=== PATIENT | female | born 1990 | race Caucasian/White ===

== ENCOUNTER 2020-07-14 07:30 | Inpatient (IN) ==
[2020-07-14] MEDS ORDERED: DINOPROSTONE 10 MG INSERT PV ONE (08:35)
[2020-07-14] MEDS ORDERED: OXYTOCIN 30 UNITS/500 ML BAG IV PRN ×2 (08:35→22:00)
[2020-07-14 09:01] LABS: Hemoglobin 10.5 g/dL (12.0-16.0); Mean Corpuscular Hemoglobin 29.1 pg (25-34); Mean Corpuscular Volume 85.9 fL (80-100); Mean Platelet Volume 9.5 fL (7.4-10.4); Platelet Count 582 K/uL (130-400); RDW Coefficient of Variation 13.2 % (11.5-14.5); RDW Standard Deviation 41.5 fL (36.4-46.3); Red Blood Count 3.61 M/uL (4.2-5.4)
--- NOTE | 2020-07-14 09:02 | History & Physical Report ---
Date of Service July 14, 2020 Assessment & Plan (1) Intrahepatic cholestasis of in third trimester: Patient is a 29-year-old G1, P0 at 38 weeks and 4 days of gestation, scheduled for induction of labor at term due to elevated bile acids, ICP. Vital signs stable afebrile heart rate reassuring GBS negative, coronavirus negative. Cervix unfavorable. Discussed with the patient about cervical ripening and induction process. Plan for Cervidil for cervical ripening. All questions were answered. Admission and Anticipated Discharge Date Admission Date: July 14, 2020 History of Present Illness Chief Complaint: Induction of labor Primary Care Provider: NO PCP Patient is a 29-year-old G1, P0 at 38 weeks and 4 days of gestation who was scheduled for induction of labor at term due to elevated bile acids, ICP. She has no complaints. She denies contractions, leakage of fluid, vaginal bleeding. She reports good movements. She denies fever chills, nausea vomiting, epigastric or right upper quadrant pain, headaches, change in vision. Her was uncomplicated except above. GBS negative. Coronavirus negative. Home Medications Home Medications Medication Instructions Recorded Confirmed Type prenat.vits,molly,[id number]-ksmdu 1 tab PO DAILY 07/14/20 07/14/20 History [ Vitamin] Patient History Medical History Mastitis during 06/30/2020 Spontaneous 05/2019 Surgical History History of colposcopy with cervical biopsy 01/30 ASCUS +HR HPV colpo 02/2013-negative Pap 01/31, 02/01, 12/05 [place] teeth extracted Family History Grandmother (Paternal) Stroke Grandfather (Maternal) Myocardial infarction Social History Smoking Status: Never smoker Hx Alcohol Use: No Hx Substance Use: No Preferred Language: Romanian Communication Ability: Effective Beliefs That Will Affect Care: None marital status: Current Living Situation: Spouse Feels Safe at Home: Yes HEALTH DIRECTOR History No h/o STD's, no HSV Review of Systems All systems reviewed & are unremarkable except as noted in HPI & below Physical Exam Constitutional: WD/WN, vitals as above well developed and well nourished Comfortable, not in acute distress. Gastrointestinal (Abdomen): Abdomen soft nontender, gravid, no epigastric or right upper quadrant tenderness. Genitourinary: normal external appearance OB Exam Abdomen: + vertex (Confirmed with bedside ultrasound.) Manual OB Exam: + cervical dilation (0) fingertip, + cervical effacement 50% and + station high OB Exam Monitor Tracing: + external uterine monitor used and + category I Results & Data ([facility]) Vital Signs (Past 12 Hours) Vital Signs Temp Pulse Resp BP 07/14/20 07:45 36.7 C 18 07/14/20 07:43 102 H 118/88
[2020-07-14 09:03] LABS: Mean Corpuscular Hgb Conc 33.9 g/dL (32-36)
[2020-07-14] MEDS ORDERED: CALCIUM CARBONATE 500 MG CHEWABLE TAB PO PRN (09:03)
[2020-07-14] MEDS ORDERED: ONDANSETRON INJ 2 MG/ML 2 ML VIAL IV PRN (09:03)
[2020-07-14 09:18] LABS: Albumin Level 2.7 gm/dl (3.4-5.0); BUN Creatinine Ratio 12.9 (10-20); Creatinine Clr Calc Pharmacy 134.2 ml/min; Est GFR (Non-African American) 120.8; Potassium 3.9 mmol/L (3.5-5.1)
[2020-07-14 09:21] LABS: Albumin Globulin Ratio 0.6 (0.9-2); Bilirubin,Total 0.3 mg/dl (0.2-1); Globulin 4.9 gm/dl (2.5-4.0); Total Protein 7.6 gm/dl (6.4-8.2)
--- NOTE | 2020-07-14 09:29 | Anesthesiology Consultation ---
Date of Service July 14, 2020 Assessment & Plan (1) Encounter for pre-operative examination: Chart Review Chart Review: Acceptable Risk for Surgery and Patient NOT seen in Pre Admission Testing Consults Requested none ASA ASA2 Proposed Anesthesia Anesthesia Type: Labor Epidural Risk / Benefits Reviewed With: PT / POA / Parent / Guardian, Accepts Plan and Informed Consent Obtained History Height/Weight Height: 5 ft 5 in Weight: 79.379 kg Allergies Allergy/AdvReac Type Severity Reaction Status Date / Time No Known Allergies Allergy Unverified 07/14/20 09:10 Medications Home Medications Medication Instructions Recorded Confirmed Last Taken prenat.vits,molly,[id number]-[id number] 1 tab PO DAILY 07/14/20 07/14/20 07/14/20 [ Vitamin] NPO Date Last Intake of Fluids: 07/14/20 Time Last Intake of Fluids: 08:00 Date Last Intake of Solids: 07/13/20 Time Last Intake of Solids: 21:00 Past Medical History Medical History Mastitis during 06/30/2020 Spontaneous 05/2019 Exercise / Class Metabolic Activity II 4-5 Yardwork/Stairs/Walk up hill Past Family History Family History Grandmother (Paternal) Stroke Grandfather (Maternal) Myocardial infarction Past Surgical History Surgical History History of colposcopy with cervical biopsy 01/30 ASCUS +HR HPV colpo 02/2013-negative Pap 01/31, 02/01, 12/05 [place] teeth extracted Past Anesthesia History No Hx of Anesthesia Complications and No Family Hx of Anesthesia Complications History of PONV No Hx of PONV and No Hx of Motion Sickness Social History Smoking Status: Never smoker Hx Alcohol Use: No Hx Substance Use: No Physical Exam Vital Signs Last Vital Signs Temp 36.7 C 07/14/20 07:45 Pulse 102 H 07/14/20 07:43 Resp 18 07/14/20 07:45 BP 118/88 07/14/20 07:43 ENMT Mouth: no dentition abnormality Thyromental Distance: > or= 3.5 Finger Breadths Mallampati Class: II Neck normal visual inspection Respiratory normal respiratory effort Auscultation: lungs clear to auscultation bilaterally Cardiovascular Rate/Rhythm: regular rate and regular rhythm Psychiatric Orientation: alert Testing Laboratory Results 07/14/20 08:52 07/14/20 08:52
[2020-07-14] MEDS: LACTATED RINGER'S 1,000 ML IV PRN ×3 (16:20→20:03)
--- NOTE | 2020-07-14 16:20 | Obstetrical Progress Note ---
Date of Service July 14, 2020 Assessment & Plan Admission and Anticipated Discharge Date Admission Date: July 14, 2020 Subjective Patient is reevaluated She started to feel ctxs q 2-3 min, pain is 6/10 Desires pain meds VE; 1cm/ 50%/ -, 3, posterior, Cervidil is in place Stadol for pain Continue to monitor Results & Data ([facility]) Vital Signs (Past 12 Hours) Vital Signs Temp Pulse Resp BP 07/14/20 15:02 90 117/75 07/14/20 15:00 36.6 C 20 07/14/20 14:16 18 07/14/20 13:30 92 H 126/76 07/14/20 13:28 36.7 C 18 07/14/20 12:30 18 07/14/20 11:49 18 07/14/20 11:19 18 07/14/20 11:00 18 07/14/20 10:30 36.5 C 88 18 111/68 07/14/20 07:45 36.7 C 07/14/20 07:43 102 H 118/88
[2020-07-14] MEDS: BUTORPHANOL TARTRATE 1 MG/ML VIAL IV PRN ×2 (16:23→18:57)
[2020-07-14] MEDS ORDERED: NALOXONE HCL 0.4 MG/1 ML VIAL/CARP IV PRN (19:50)
[2020-07-14] MEDS ORDERED: ePHEDrine sulfate 50 MG/ML AMP ONE (19:50)
[2020-07-14] MEDS ORDERED: NALOXONE HCL 1 MG in SODIUM CHLORIDE 0.9% 1000ML 1,000 ML IV PRN (19:50)
[2020-07-14] MEDS ORDERED: fentaNYL 2MCG/ML ROPIV 1.25MG/ML 100 ML BAG EPI PRN (19:50)
[2020-07-14] MEDS ORDERED: BUPIVACAINE 0.25% 30 ML VIAL ONE (19:50)
[2020-07-14] MEDS ORDERED: ePHEDrine sulfate 50 MG/ML AMP IV PRN (19:50)
[2020-07-14] MEDS ORDERED: DiphenhydrAMINE HCL 50 MG/ML VIAL IV PRN (19:50)
--- NOTE | 2020-07-14 19:50 | Anesthesiology Consultation ---
Date of Service July 14, 2020 Assessment & Plan (1) Encounter for pre-operative examination: Chart Review Chart Review: Acceptable Risk for Surgery and Patient NOT seen in Pre Admission Testing Consults Requested none ASA ASA2 Proposed Anesthesia Anesthesia Type: Labor Epidural Risk / Benefits Reviewed With: PT / POA / Parent / Guardian, Accepts Plan and Informed Consent Obtained History Height/Weight Height: 5 ft 5 in Weight: 79.379 kg Allergies Allergy/AdvReac Type Severity Reaction Status Date / Time No Known Allergies Allergy Unverified 07/14/20 09:10 Medications Home Medications Medication Instructions Recorded Confirmed Last Taken prenat.vits,molly,iue-sopv-fzqeh 1 tab PO DAILY 07/14/20 07/14/20 07/14/20 [ Vitamin] Active Medications Generic Name Dose Route Start Last Admin Trade Name Freq PRN Reason Stop Dose Admin Butorphanol Tartrate 1 mg 07/14/20 09:03 07/14/20 18:57 Butorphanol Tartrate 1 Mg/Ml Vial IV 08/13/20 09:02 1 mg Q3HWA PRN Administration Pain Lactated Ringer's 1,000 mls @ 150 mls/hr 07/14/20 08:35 07/14/20 19:30 Lr IV 07/16/20 08:34 999 mls/hr .[id number] PRN Infusion L&D Protocol Protocol NPO Date Last Intake of Fluids: 07/14/20 Time Last Intake of Fluids: 08:00 Date Last Intake of Solids: 07/13/20 Time Last Intake of Solids: 21:00 Past Medical History Medical History Mastitis during 06/30/2020 Spontaneous 05/2019 Exercise / Class Metabolic Activity II 4-5 Yardwork/Stairs/Walk up hill Past Family History Family History Grandmother (Paternal) Stroke Grandfather (Maternal) Myocardial infarction Past Surgical History Surgical History History of colposcopy with cervical biopsy 01/30 ASCUS +HR HPV colpo 02/2013-negative Pap 01/31, 02/01, 12/05 [place] teeth extracted Past Anesthesia History No Hx of Anesthesia Complications and No Family Hx of Anesthesia Complications History of PONV No Hx of PONV and No Hx of Motion Sickness Social History Smoking Status: Never smoker Hx Alcohol Use: No Hx Substance Use: No Physical Exam Vital Signs Last Vital Signs Temp 37.0 C 07/14/20 19:16 Pulse 100 H 07/14/20 19:02 Resp 18 07/14/20 19:16 BP 119/65 07/14/20 19:02 ENMT Mouth: no dentition abnormality Thyromental Distance: > or= 3.5 Finger Breadths Mallampati Class: II Neck normal visual inspection Respiratory normal respiratory effort Auscultation: lungs clear to auscultation bilaterally Cardiovascular Rate/Rhythm: regular rate and regular rhythm Psychiatric Orientation: alert Testing Laboratory Results 07/14/20 08:52 07/14/20 08:52
[2020-07-14] MEDS ORDERED: fentaNYL citrate 100 MCG/2 ML VIAL ONE (19:51)
[2020-07-14] MEDS ORDERED: fentaNYL 2MCG/ML ROPIV 1.25MG/ML 100 ML BAG EPI ONE (19:51)
--- NOTE | 2020-07-14 20:26 | Obstetrical Progress Note ---
Date of Service July 14, 2020 Assessment & Plan Admission and Anticipated Discharge Date Admission Date: July 14, 2020 Subjective Patient is comfortable now Received 2 doses of Stadol and then epidural No pain, smiling FHR reassuring Continue to monitor VE in an hour to remove Cervidil Results & Data ([facility]) Vital Signs (Past 12 Hours) Vital Signs Temp Pulse Resp BP Pulse Ox 07/14/20 20:21 99 H 99 07/14/20 20:18 100 H 123/71 07/14/20 20:16 99 H 121/61 99 07/14/20 20:14 99 H 123/59 L 07/14/20 20:12 96 H 130/70 07/14/20 20:11 109 H 99 07/14/20 20:10 101 H 107/58 L 07/14/20 20:09 93 H 114/61 07/14/20 20:06 100 H 108/54 L 100 07/14/20 20:01 99 H 100 07/14/20 19:56 98 H 100 07/14/20 19:16 37.0 C 18 07/14/20 19:02 100 H 119/65 07/14/20 19:00 37.0 C 20 07/14/20 17:28 90 119/59 L 07/14/20 17:27 36.9 C 20 07/14/20 15:02 90 117/75 07/14/20 15:00 36.6 C 20 07/14/20 14:16 18 07/14/20 13:30 92 H 126/76 07/14/20 13:28 36.7 C 18 07/14/20 12:30 18 07/14/20 11:49 18 07/14/20 11:19 18 07/14/20 11:00 18 07/14/20 10:30 36.5 C 88 18 111/68
--- NOTE | 2020-07-14 22:05 | Obstetrical Progress Note ---
Date of Service July 14, 2020 Assessment & Plan Admission and Anticipated Discharge Date Admission Date: July 14, 2020 Subjective Patient is reevaluated She is comfortable VE; 3-4 cm/ 70%/ -2, leaking clear fluid? Nitrazine negative, Cervidil is taken out FHR categ I [place] ctxs q 2-4 min Continue to monitor Augment with Pitocin as needed Results & Data ([facility]) Vital Signs (Past 12 Hours) Vital Signs Temp Pulse Resp BP Pulse Ox 07/14/20 21:56 98 H 97 07/14/20 21:51 96 H 97 07/14/20 21:49 96 H 111/70 07/14/20 21:46 98 H 97 07/14/20 21:41 102 H 98 07/14/20 21:36 93 H 99 07/14/20 21:33 87 108/64 07/14/20 21:31 108 H 18 98 07/14/20 21:26 105 H 99 07/14/20 21:21 93 H 97 07/14/20 21:20 18 07/14/20 21:18 90 97/51 L 07/14/20 21:16 88 96 07/14/20 21:11 90 96 07/14/20 21:06 96 H 97 07/14/20 21:03 88 99/52 L 07/14/20 21:01 90 99 07/14/20 20:56 96 H 97 20 20:51 98 H 98 20 20:48 115 H 109/61 20 20:46 102 H 99 20 20:41 104 H 98 20 20:36 101 H 99 20 20:33 103 H 115/67 20 20:31 96 H 98 20 20:29 18 20 20:26 98 H 99 25/20 20:25 18 20 20:21 99 H 99 20 20:18 100 H 123/71 2520 20:16 99 H 121/61 99 25/20 20:15 18 20 20:14 99 H 123/59 L 20 20:12 96 H 130/70 20 20:11 109 H 99 08/25/20 20:10 101 H 18 107/58 L 07/14/20 20:09 93 H 114/61 07/14/20 20:06 100 H 108/54 L 100 07/14/20 20:05 18 07/14/20 20:01 99 H 100 07/14/20 19:56 98 H 100 07/14/20 19:16 37.0 C 18 07/14/20 19:02 100 H 119/65 07/14/20 19:00 37.0 C 20 07/14/20 17:28 90 119/59 L 07/14/20 17:27 36.9 C 20 07/14/20 15:02 90 117/75 07/14/20 15:00 36.6 C 20 07/14/20 14:16 18 07/14/20 13:30 92 H 126/76 07/14/20 13:28 36.7 C 18 07/14/20 12:30 18 07/14/20 11:49 18 07/14/20 11:19 18 07/14/20 11:00 18 07/14/20 10:30 36.5 C 88 18 111/68
[2020-07-15] MEDS: LACTATED RINGER'S 1,000 ML IV PRN ×2 (04:24→06:30)
--- NOTE | 2020-07-15 06:36 | Obstetrical Progress Note ---
Date of Service July 15, 2020 Assessment & Plan Admission and Anticipated Discharge Date Admission Date: July 14, 2020 Subjective Patient has been pushing for about 2.5 hours, with good efforts for the last 2 hours Large caput, visible with pushes FHR categ I Will continue to monitor closely Anticipate Results & Data ([facility]) Vital Signs (Past 12 Hours) Vital Signs Temp Pulse Resp BP Pulse Ox 07/15/20 06:32 125 H 98 07/15/20 06:27 162 H 98 07/15/20 06:23 37.0 C 18 07/15/20 06:22 166 H 97 07/15/20 06:17 121 H 98 07/15/20 06:12 155 H 98 07/15/20 06:07 106 H 97 07/15/20 06:02 111 H 97 07/15/20 05:57 122 H 98 07/15/20 05:52 117 H 98 07/15/20 05:47 114 H 98 07/15/20 05:42 104 H 96 07/15/20 05:41 108 H 90 07/15/20 05:37 98 H 96 07/15/20 05:33 101 H 107/57 L 07/15/20 05:32 104 H 98 07/15/20 05:27 96 H 96 07/15/20 05:22 102 H 93 07/15/20 05:21 103 H 94 07/15/20 05:18 97 H 117/63 07/15/20 05:16 91 H 95 07/15/20 05:11 100 H 97 07/15/20 05:10 110 H 88 L 07/15/20 05:06 100 H 96 07/15/20 05:04 93 H 121/69 07/15/20 05:03 115 H 93 07/15/20 05:01 100 H 98 07/15/20 04:56 119 H 95 07/15/20 04:51 118 H 98 07/15/20 04:46 108 H 95 07/15/20 04:41 108 H 99 07/15/20 04:38 37.4 C 18 07/15/20 04:37 109 H 90 07/15/20 04:36 96 H 110/66 96 07/15/20 04:31 107 H 89 L 07/15/20 04:26 103 H 99 07/15/20 04:21 103 H 99 08/26/20 04:18 91 H 127/73 07/15/20 04:16 103 H 98 07/15/20 04:11 108 H 99 07/15/20 04:06 97 H 98 07/15/20 04:04 92 H 129/73 07/15/20 04:01 114 H 99 07/15/20 03:56 102 H 100 07/15/20 03:51 93 H 100 07/15/20 03:48 97 H 124/76 07/15/20 03:46 101 H 100 07/15/20 03:41 96 H 18 99 07/15/20 03:36 91 H 99 07/15/20 03:34 94 H 123/72 07/15/20 03:31 97 H 99 07/15/20 03:26 99 H 100 07/15/20 03:21 102 H 100 07/15/20 03:18 103 H 119/74 07/15/20 03:16 99 H 98 07/15/20 03:11 87 98 07/15/20 03:06 90 100 07/15/20 03:04 90 121/72 07/15/20 03:01 89 99 07/15/20 02:56 94 H 99 07/15/20 02:51 86 100 07/15/20 02:49 86 117/66 07/15/20 02:46 89 98 07/15/20 02:41 97 H 97 07/15/20 02:36 86 98 07/15/20 02:33 86 111/71 07/15/20 02:31 109 H 99 07/15/20 02:26 93 H 100 07/15/20 02:21 87 98 07/15/20 02:18 91 H 109/71 07/15/20 02:16 90 97 07/15/20 02:11 96 H 99 07/15/20 02:06 99 H 98 07/15/20 02:03 95 H 112/74 07/15/20 02:01 92 H 98 07/15/20 01:56 88 98 07/15/20 01:52 107 H 91 07/15/20 01:51 113 H 98 07/15/20 01:48 97 H 111/69 07/15/20 01:46 85 98 07/15/20 01:41 107 H 99 07/15/20 01:36 97 H 98 07/15/20 01:33 95 H 112/70 07/15/20 01:31 98 H 98 07/15/20 01:26 106 H 98 07/15/20 01:21 92 H 97 07/15/20 01:19 93 H 112/70 07/15/20 01:16 102 H 97 07/15/20 01:11 87 96 07/15/20 01:06 89 96 07/15/20 01:03 89 111/67 07/15/20 01:01 93 H 18 96 07/15/20 00:56 94 H 96 07/15/20 00:51 89 97 07/15/20 00:48 91 H 122/69 07/15/20 00:46 95 H 97 07/15/20 00:41 90 97 07/15/20 00:37 37.5 C 18 07/15/20 00:36 90 98 07/15/20 00:33 86 120/66 07/15/20 00:31 90 97 07/15/20 00:26 93 H 98 07/15/20 00:21 98 H 99 07/15/20 00:18 85 94/50 L 07/15/20 00:16 88 96 07/15/20 00:11 86 96 07/15/20 00:06 93 H 97 07/15/20 00:04 85 101/61 07/15/20 00:01 88 97 07/14/20 23:58 18 07/14/20 23:56 87 97 07/14/20 23:51 89 98 07/14/20 23:50 85 96/55 L 07/14/20 23:46 87 98 07/14/20 23:41 96 H 98 07/14/20 23:39 18 07/14/20 23:36 106 H 98 07/14/20 23:34 98 H 110/65 07/14/20 23:31 95 H 96 07/14/20 23:26 97 H 96 07/14/20 23:21 95 H 97 07/14/20 23:20 94 H 108/68 07/14/20 23:16 98 H 97 07/14/20 23:11 96 H 98 07/14/20 23:06 110 H 96 07/14/20 23:04 100 H 119/69 08/25/20 23:01 101 H 97 0825/20 22:56 94 H 97 0825/20 22:51 95 H 97 08/20 22:49 99 H 109/65 0825/20 22:46 93 H 97 08/20 22:41 98 H 96 08/20 22:36 98 H 96 08/20 22:34 96 H 111/68 08/20 22:31 94 H 97 07/14/20 22:26 92 H 98 08/20 22:21 96 H 98 07/14/20 22:18 92 H 106/65 25/20 22:16 95 H 98 08/20 22:11 100 H 98 07/14/20 22:06 105 H 98 20 22:03 97 H 110/71 07/14/20 22:01 37.2 C 104 H 18 98 20 21:56 98 H 97 20 21:51 96 H 97 20 21:49 96 H 111/70 25/20 21:46 98 H 97 20 21:41 102 H 98 0825/20 21:36 93 H 99 0825/20 21:33 87 108/64 08/20 21:31 108 H 18 98 20 21:26 105 H 99 07/14/20 21:21 93 H 97 07/14/20 21:20 18 25/20 21:18 90 97/51 L 20 21:16 88 96 0825/20 21:11 90 96 25/20 21:06 96 H 97 25/20 21:03 88 99/52 L 07/14/20 21:01 90 99 0825/20 20:56 96 H 97 0825/20 20:51 98 H 98 0825/20 20:48 115 H 109/61 0825/20 20:46 102 H 99 0825/20 20:41 104 H 98 0825/20 20:36 101 H 99 0825/20 20:33 103 H 115/67 0825/20 20:31 96 H 98 0825/20 20:29 18 25/20 20:26 98 H 99 0825/20 20:25 18 07/14/20 20:21 99 H 99 07/14/20 20:18 100 H 123/71 07/14/20 20:16 99 H 121/61 99 07/14/20 20:15 18 07/14/20 20:14 99 H 123/59 L 07/14/20 20:12 96 H 130/70 07/14/20 20:11 109 H 99 07/14/20 20:10 101 H 18 107/58 L 07/14/20 20:09 93 H 114/61 07/14/20 20:06 100 H 108/54 L 100 07/14/20 20:05 18 07/14/20 20:01 99 H 100 07/14/20 19:56 98 H 100 07/14/20 19:16 37.0 C 18 07/14/20 19:02 100 H 119/65 07/14/20 19:00 37.0 C 20
[2020-07-15] MEDS ORDERED: ACETAMINOPHEN 325 MG TAB PO PRN (07:46)
[2020-07-15] MEDS ORDERED: SUPERCREAM 0.870% 15 GM JAR EXT PRN (07:46)
[2020-07-15] MEDS ORDERED: MEASLES, MUMPS & RUBELLA VIRUS VIAL SQ ONE (07:46)
[2020-07-15] MEDS ORDERED: CEFAZOLIN 2000MG 2,000 MG/15 ML SYR IV STA (07:46)
[2020-07-15] MEDS ORDERED: BENZOCAINE 20% AER SPR 82.5 GM CAN EXT PRN (07:46)
[2020-07-15] MEDS ORDERED: OXYCODONE/ACETAMINOPHEN 5mg/325mg TAB PO PRN (07:46)
[2020-07-15] MEDS ORDERED: OXYTOCIN 30 UNITS/500 ML BAG IV PRN (07:46)
[2020-07-15] MEDS ORDERED: DIPHTHERIA/TETANUS/PERTUSSIS 0.5 ML SYR/VIAL IM ONE (07:46)
[2020-07-15] MEDS ORDERED: HYDROCORTISONE ACETATE 25 MG SUPP PR PRN (07:46)
[2020-07-15] MEDS ORDERED: FERROUS SULFATE 325 MG TAB PO SCH (08:00)
--- NOTE | 2020-07-15 08:09 | Anesthesia Procedure Note ---
Date of Service July 15, 2020 Anesthesia Post Epidural Note Vital Signs Vital Signs: Temp Pulse Resp BP Pulse Ox 37.0 C 106 H 18 125/64 82 L 07/15/20 06:23 07/15/20 08:03 07/15/20 06:23 07/15/20 08:03 07/15/20 07:18 Notes Mental Status: alert / awake / arousable Nausea / Vomiting: adequately controlled Pain: adequately controlled Airway Patency, RR, SpO2: stable & adequate BP & HR: stable & adequate Hydration State: stable & adequate Neuraxial Anesthesia: was administered and sensory block is resolving Anesthetic Complications: no major complications apparent Epidural: Removed without complications and With tip intact
[2020-07-15] MEDS ORDERED: FLUCONAZOLE 50 MG TAB PO ONE (08:15)
[2020-07-15] MEDS: IBUPROFEN 600 MG TAB PO PRN ×2 (08:54→19:34)
--- NOTE | 2020-07-15 09:21 | Delivery Summary ---
DATE OF OPERATION: 07/15/2020 DATE OF DELIVERY: 07/15/2020. TIME: 07:17 a.m. DETAILS OF DELIVERY: The patient was found to be fully dilated and desired to push. She pushed for 3-1/2 hours and delivered the head without difficulty and then shoulders were delivered with minimal traction. There was a nuchal cord around the neck x1 which was reduced. Baby was handed to the mother where mouth and nose were suctioned. Cord was clamped x2 and cut. It was 3-vessel cord. Then cord blood was obtained. Vagina and perineum were checked for lacerations. There was a partial third-degree perineal laceration, which was confirmed with rectal exam. There was partial sphincter tone. The external sphincter muscles fibers and the perineal body muscles around it were held with Allis clamps brought to the midline. Those were reapproximated with 2-0 Vicryl with [id number] stitches x2 and the rectal exam was repeated and excellent sphincter tone and integrity was noted. No sutures were felt. Gloves were changed and more sutures were placed around the repair including perineal body muscles and bulbocavernosus muscles. Then vaginal mucosa was repaired with another sterile 2-0 Vicryl in a running fashion, skin in a subcuticular fashion. The rest of the vagina and labia were intact. Placenta was found to be in the vagina, delivered spontaneous as intact and complete. Uterus was explored, found to be empty. Lower segment was cleared of all clots and debris. EBL was 200 mL. Mom and baby tolerated the procedure well. Sponge, lap, needle count was correct x2. Baby was a viable male infant, Apgars 8/9, weight is 3586 gr. No complications happened and I was present during whole procedure. I attest to the content of the Intraoperative Record and any orders documented therein. Any exceptions are noted below. MTDD
[2020-07-15] MEDS: DOCUSATE SODIUM 100 MG CAP PO SCH ×2 (10:47→21:44)
[2020-07-15] MEDS: PRENATAL VITAMIN 1 TAB PO SCH (10:47)
[2020-07-15] MEDS ORDERED: bisacodyL 5 MG TABEC PO SCH (20:00)
[2020-07-16] MEDS: IBUPROFEN 600 MG TAB PO PRN ×5 (03:48→19:55)
[2020-07-16 06:59] LABS: Hematocrit (blood only) 27.7 % (37-47); Hemoglobin 9.1 g/dL (12.0-16.0); Mean Corpuscular Hemoglobin 28.6 pg (25-34); Mean Corpuscular Hgb Conc 32.9 g/dL (32-36); Mean Corpuscular Volume 87.1 fL (80-100); Mean Platelet Volume 9.5 fL (7.4-10.4); Platelet Count 500 K/uL (130-400); RDW Coefficient of Variation 13.8 % (11.5-14.5); RDW Standard Deviation 43.8 fL (36.4-46.3); Red Blood Count 3.18 M/uL (4.2-5.4); White Blood Count 23.49 K/uL (4.8-10.8)
--- NOTE | 2020-07-16 07:38 | Obstetrical Progress Note ---
Date of Service July 16, 2020 Assessment & Plan Admission and Anticipated Discharge Date Admission Date: July 14, 2020 Subjective Patient is seen and examined. She feels well, no complaints. Ambulating without dizziness Voiding without difficulty Tolerating regular diet with out N&V Bleeding is minimal No fever/ chills/ CP/ SOB/ N&V/ Leg pain Breast feeding without problems Vital Signs Temp Pulse Pulse Resp BP BP Pulse Ox 07/16/20 00:00 36.4 C L 76 18 92/66 L 07/15/20 19:25 36.7 C 94 H 18 115/74 07/15/20 16:40 36.5 C 89 19 114/74 98 07/15/20 10:50 36.7 C 97 H 22 97/67 L 97 07/15/20 09:48 95 H 18 115/66 07/15/20 09:33 96 H 116/63 07/15/20 09:24 99 H 112/60 07/15/20 09:18 36.8 C 99 H 20 112/60 07/15/20 09:03 95 H 121/67 07/15/20 08:48 91 H 18 116/70 07/15/20 08:34 93 H 115/67 07/15/20 08:33 93 H 18 115/67 07/15/20 08:19 100 H 124/67 07/15/20 08:18 100 H 18 124/67 07/15/20 08:03 106 H 18 125/64 07/15/20 07:48 37.0 C 103 H 20 123/66 Lab Results 07/14/20 07/14/20 07/16/20 Range/Units 08:52 08:52 06:27 WBC 15.70 H 23.49 H (4.8-10.8) K/uL RBC 3.61 L 3.18 L (4.2-5.4) M/uL Hgb 10.5 L 9.1 L (12.0-16.0) g/dL Hct 31.0 L 27.7 L (37-47) % MCV 85.9 87.1 (80-100) fL MCH 29.1 28.6 (25-34) pg MCHC 33.9 32.9 (32-36) g/dL RDW Std Deviation 41.5 43.8 (36.4-46.3) fL RDW Coeff of Roly 13.2 13.8 (11.5-14.5) % Plt Count 582 H 500 H (130-400) K/uL MPV 9.5 9.5 (7.4-10.4) fL Sodium 135 L (136-145) mmol/L Potassium 3.9 (3.5-5.1) mmol/L Chloride 108 H (98-107) mmol/L Carbon Dioxide 19 L (21-32) mmol/L Anion Gap 8.0 (3-11) BUN 8 (7-18) mg/dl Creatinine 0.65 (0.6-1.2) mg/dl Est Cr Clr Drug Dosing 134.2 ml/min Est GFR ( Amer) 140.0 Est GFR (Non-Af Amer) 120.8 BUN/Creatinine Ratio 12.9 (10-20) Glucose 76 (70-99) mg/dl Calcium 9.0 (8.5-10.1) mg/dl Total Bilirubin 0.3 (0.2-1) mg/dl AST 40 H (15-37) U/L ALT 45 (12-78) U/L Alkaline Phosphatase 268 H (45-117) U/L Total Protein 7.6 (6.4-8.2) gm/dl Albumin 2.7 L (3.4-5.0) gm/dl Globulin 4.9 H (2.5-4.0) gm/dl Albumin/Globulin Ratio 0.6 L (0.9-2) PE: General: Alert, orientedx3, NAD Abd: soft, NT, fundus firm, below Umbilicus Perineum intact, Lochia rubra minimal Ext; NT, no edema AP: 29 yo s/p , ppd# 1 VSS Afebrile doing well Elevated WBCC, afebrile, repeat in am Continue routine care All questions were answered D/C home tomorrow Results & Data ([facility]) Vital Signs (Past 12 Hours) Vital Signs Temp Pulse Resp BP 07/16/20 00:00 36.4 C L 76 18 92/66 L
[2020-07-16] MEDS ORDERED: bisacodyL 10 MG SUPP PR PRN (07:46)
[2020-07-16] MEDS: DOCUSATE SODIUM 100 MG CAP PO SCH ×2 (08:31→21:21)
[2020-07-16] MEDS: PRENATAL VITAMIN 1 TAB PO SCH (08:31)
[2020-07-16] MEDS: FERROUS SULFATE 325 MG TAB PO SCH ×2 (08:32→21:21)
[2020-07-17] MEDS: IBUPROFEN 600 MG TAB PO PRN ×3 (00:16→09:28)
[2020-07-17 06:53] LABS: Basophils # (auto) 0.05 K/uL (0-0.2); Basophils % (auto) 0.3 %; Eosinophils # (auto) 0.24 K/uL (0-0.5); Eosinophils % (auto) 1.3 %; Hematocrit (blood only) 27.6 % (37-47); Hemoglobin 9.2 g/dL (12.0-16.0); Immature Granulocytes # (auto) 0.07 K/uL (0.00-0.02); Immature Granulocytes % (auto) 0.4 %; Lymphocytes # (auto) 2.83 K/uL (1.2-3.4); Lymphocytes % (auto) 15.4 %; Mean Corpuscular Hemoglobin 28.6 pg (25-34); Mean Corpuscular Hgb Conc 33.3 g/dL (32-36); Mean Corpuscular Volume 85.7 fL (80-100); Mean Platelet Volume 9.3 fL (7.4-10.4); Monocytes # (auto) 0.93 K/uL (0.11-0.59); Monocytes % (auto) 5.1 %; Neutrophils # (auto) 14.23 K/uL (1.4-6.5); Neutrophils % (auto) 77.5 %; Platelet Count 511 K/uL (130-400); RDW Coefficient of Variation 13.7 % (11.5-14.5); RDW Standard Deviation 43.1 fL (36.4-46.3); Red Blood Count 3.22 M/uL (4.2-5.4); White Blood Count 18.35 K/uL (4.8-10.8)
[2020-07-17] MEDS: PRENATAL VITAMIN 1 TAB PO SCH (08:01)
[2020-07-17] MEDS: DOCUSATE SODIUM 100 MG CAP PO SCH (08:01)
[2020-07-17] MEDS: FERROUS SULFATE 325 MG TAB PO SCH (08:02)
--- NOTE | 2020-07-17 13:13 | Obstetrical Progress Note ---
Date of Service July 17, 2020 Assessment & Plan Admission and Anticipated Discharge Date Admission Date: July 14, 2020 Subjective PPD#1 doing well passing gas ambulating well plans for d/c in AM Physical Exam Constitutional: WD/WN, vitals as above comfortable fundus firm abdomen soft Results & Data ([facility]) Vital Signs (Past 12 Hours) Vital Signs Temp Pulse Resp BP Pulse Ox 07/17/20 08:57 36.5 C 75 18 118/78 98 07/17/20 08:00 36.5 C 75 18 118/78 98 Laboratory Results Laboratory Results - last 72 hr 07/16/20 07/17/20 06:27 06:12 WBC 23.49 H 18.35 H RBC 3.18 L 3.22 L Hgb 9.1 L 9.2 L Hct 27.7 L 27.6 L MCV 87.1 85.7 MCH 28.6 28.6 MCHC 32.9 33.3 RDW Std Deviation 43.8 43.1 RDW Coeff of Roly 13.8 13.7 Plt Count 500 H 511 H MPV 9.5 9.3 Immature Gran % (Auto) 0.4 Neut % (Auto) 77.5 Lymph % (Auto) 15.4 Webb % (Auto) 5.1 Eos % (Auto) 1.3 Baso % (Auto) 0.3 Neut # (Auto) 14.23 H Lymph # (Auto) 2.83 Webb # (Auto) 0.93 H Eos # (Auto) 0.24 Baso # (Auto) 0.05 Immature Gran # (Auto) 0.07 H
== END 2020-07-17 18:24 | disposition home or self-care (01) | DRG 768 ==
LOC: 4S1 07:30 → 4S2 07-15 10:15